=== PATIENT | male | born 1995 | race Caucasian/White ===

== ENCOUNTER 2019-07-19 19:57 | Emergency (ER) | payer BC ==
[~2019-07-19] VITALS: Ht 177.8 cm; Wt 88.5 kg
--- NOTE | 2019-07-20 15:52 | EKG ---
[facility] [address] [facility] [place], [place] [address] Signed Sinus rhythm with premature atrial complexes with aberrant conduction Otherwise normal ECG No previous ECGs available Confirmed by NEYDA YAP DO ([id number]) on 07/20/2019 3:51:51 PM Electronically Signed By: NEYDA YAP DO 07/20/19 1552 PATIENT NAME: MERLYN BRAND Electrocardiogram DATE OF : [birth year] PHYSICIAN: NEYDA YAP DO REPORT #: [id number] REPORT IS CONFIDENTIAL AND NOT TO BE RELEASED WITHOUT AUTHORIZATION
== END 2019-07-19 21:44 | disposition home or self-care (01) ==
LOC: ED 19:57
DX: R07.9 Chest pain, unspecified (principal)
CPT/HCPCS: 71046; 93005; 93010; 99285-25